=== PATIENT | male | born 1945 | race Caucasian/White ===

== ENCOUNTER 2021-05-24 18:10 | Emergency (ER) | payer MEDICARE, OTHER ==
[~2021-05-24] VITALS: Ht 177.8 cm; Wt 77.1 kg
[2021-05-24 19:46] LABS: BASOPHILS % (AUTO) 0.2 % (0.0-5.0); HEMATOCRIT 42.8 % (42-54); MEAN CORPUSCULAR HEMOGLOBIN 29.3 pg (27.0-33.0); MEAN CORPUSCULAR HGB CONC 33.2 g/dL (32.0-36.0); MEAN CORPUSCULAR VOLUME 88.4 fL (79-99); MONOCYTES % (AUTO) 5.4 % (3.0-13.0); NEUTROPHILS % (AUTO) 85.6 % (40.0-77.0); PLATELET COUNT (AUTO) 320 K/uL (130-400); RED BLOOD CELL COUNT(AUTO) 4.84 MIL/uL (4.50-6.20); RED CELL DISTRIBUTION WIDTH 12.7 % (11.0-15.5); WHITE BLOOD COUNT (AUTO) 9.1 K/uL (4.8-10.8)
[2021-05-24 19:56] LABS: CREATININE 0.8 mg/dL (0.5-1.5)
[2021-05-24 20:06] LABS: ALBUMIN 2.9 g/dL (3.5-5.0); BILIRUBIN,TOTAL 0.4 mg/dL (0.2-1.0); TOTAL PROTEIN, SERUM 6.8 g/dL (6.0-8.3)
[2021-05-24 21:16] VITALS: BP 131/70
== END 2021-05-24 21:22 | disposition home or self-care (01) ==
LOC: EDH 18:10
DX: H53.8 Other visual disturbances (principal); E78.00 Pure hypercholesterolemia, unspecified; Z86.718 Personal history of other venous thrombosis and embolism; Z90.89 Acquired absence of other organs; Z98.890 Other specified postprocedural states
CPT/HCPCS: 36415; 70450; 80053; 82550; 84484; 85025; 93005

== ENCOUNTER 2021-06-08 16:01 | Emergency (ER) | payer MEDICARE, OTHER ==
[~2021-06-08] VITALS: Ht 177.8 cm; Wt 75.1 kg
[2021-06-08 16:34] LABS: BASOPHILS % (AUTO) 0.3 % (0.0-5.0); EOSINOPHILS % (AUTO) 3.6 % (0.0-8.0); HEMATOCRIT 45.9 % (42-54); LYMPHOCYTES % (AUTO) 9.5 % (21.0-51.0); MEAN CORPUSCULAR HEMOGLOBIN 29.2 pg (27.0-33.0); MEAN CORPUSCULAR HGB CONC 32.2 g/dL (32.0-36.0); MEAN CORPUSCULAR VOLUME 90.5 fL (79-99); MONOCYTES % (AUTO) 7.6 % (3.0-13.0); NEUTROPHILS % (AUTO) 78.4 % (40.0-77.0); PLATELET COUNT (AUTO) 376 K/uL (130-400); RED BLOOD CELL COUNT(AUTO) 5.07 MIL/uL (4.50-6.20); RED CELL DISTRIBUTION WIDTH 12.8 % (11.0-15.5); WHITE BLOOD COUNT (AUTO) 12.4 K/uL (4.8-10.8)
[2021-06-08 16:36] LABS: APPEARANCE,URINE Clear (CLEAR); BILIRUBIN,URINE Negative (NEGATIVE); COLOR,URINE Dark Yellow (YELLOW); GLUCOSE, URINE (UA) Negative (NEGATIVE); KETONES,URINE Trace mg/dL (NEGATIVE); LEUKOCYTE ESTERASE ,URINE Negative (NEGATIVE); NITRATE,URINE Negative (NEGATIVE); OCCULT BLOOD,URINE Moderate (NEGATIVE); PH,URINE 5.5 (5.0-8.0); PROTEIN,URINE Trace mg/dL (NEGATIVE)
[2021-06-08 16:45] LABS: BACTERIA,URINE Few /HPF (None Seen); CREATININE 0.9 mg/dL (0.5-1.5); MUCUS,URINE Few LPF (None Seen); SQUAMOUS EPITHELIAL CELL,UR Few /HPF (0-2)
[2021-06-08 16:55] LABS: ALBUMIN 3.3 g/dL (3.5-5.0); BILIRUBIN,TOTAL 0.4 mg/dL (0.2-1.0); TOTAL PROTEIN, SERUM 7.5 g/dL (6.0-8.3)
[2021-06-08] MEDS ORDERED: ONDANSETRON 4MG INJ IVP ONE (18:30)
[2021-06-08] MEDS ORDERED: 0.9%NACL 1000ML 1,000 ML IV ONE (18:30)
[2021-06-08] MEDS ORDERED: FAMOTIDINE 20MG VIAL IV ONE (18:30)
[2021-06-08] MEDS ORDERED: IOHEXOL-350 75 ML VIAL IV ONE (18:41)
[2021-06-08] MEDS ORDERED: ONDA4TAB10 PO (20:47)
[2021-06-08] MEDS ORDERED: FAMO-136 PO (20:47)
[2021-06-08 20:57] VITALS: BP 121/80
[2021-06-10] MEDS ORDERED: APIX5TAB PO (04:41)
[2021-06-10] MEDS ORDERED: PRAV40TA3 PO (04:41)
== END 2021-06-08 21:14 | disposition home or self-care (01) ==
LOC: EDH 16:01
DX: R10.84 Generalized abdominal pain (principal); R11.0 Nausea; R63.4 Abnormal weight loss; R19.7 Diarrhea, unspecified; Z20.822 Contact with and (suspected) exposure to COVID-19; E78.00 Pure hypercholesterolemia, unspecified; Z79.899 Other long term (current) drug therapy; Z86.718 Personal history of other venous thrombosis and embolism; Z90.49 Acquired absence of other specified parts of digestive tract
CPT/HCPCS: 36415; 71045; 74177; 80053; 81001; 84484; 85025; 87635; 87804 ×2; 93005; 96361; 96374; 96375; 99285; C9803; J2405; J3490; Q9967

== ENCOUNTER 2021-06-13 11:10 | Emergency (ER) | payer MEDICARE, OTHER ==
[~2021-06-13] VITALS: Ht 177.8 cm; Wt 73.9 kg
[~2021-06-13 11:10] MED LIST: APIX5TAB PO; FAMO-136 PO; ONDA4TAB10 PO; PRAV40TA3 PO
[2021-06-13 12:13] LABS: BASOPHILS % (AUTO) 0.2 % (0.0-5.0); EOSINOPHILS % (AUTO) 3.7 % (0.0-8.0); HEMATOCRIT 41.5 % (42-54); LYMPHOCYTES % (AUTO) 6.5 % (21.0-51.0); MEAN CORPUSCULAR HEMOGLOBIN 29.3 pg (27.0-33.0); MEAN CORPUSCULAR HGB CONC 32.5 g/dL (32.0-36.0); MEAN CORPUSCULAR VOLUME 90.2 fL (79-99); MONOCYTES % (AUTO) 8.5 % (3.0-13.0); NEUTROPHILS % (AUTO) 80.5 % (40.0-77.0); PLATELET COUNT (AUTO) 277 K/uL (130-400); WHITE BLOOD COUNT (AUTO) 9.9 K/uL (4.8-10.8)
[2021-06-13 12:22] LABS: CREATININE 0.8 mg/dL (0.5-1.5); POTASSIUM 4.2 mmol/L (3.5-5.1)
[2021-06-13 12:27] LABS: ALBUMIN 2.8 g/dL (3.5-5.0); BILIRUBIN,TOTAL 0.8 mg/dL (0.2-1.0); TOTAL PROTEIN, SERUM 6.1 g/dL (6.0-8.3)
[2021-06-13 13:21] LABS: B-TYPE NATRIURETIC PEPTIDE 12 pg/mL (0-100)
[2021-06-13] MEDS ORDERED: 0.9%NACL 1000ML 1,000 ML IV SCH (13:30)
[2021-06-13] MEDS ORDERED: IOHEXOL-350 75 ML VIAL IV ONE (13:52)
[2021-06-13] MEDS ORDERED: LORAZEPAM 0.5 MG TABLET PO SCH (15:00)
[2021-06-13] MEDS ORDERED: CYCL10TA16 PO (15:23)
[2021-06-13] MEDS ORDERED: HYDR-3421 PO (15:24)
[2021-06-13 15:42] VITALS: BP 132/78
== END 2021-06-13 15:46 | disposition home or self-care (01) ==
LOC: EDH 11:10
DX: M94.0 Chondrocostal junction syndrome [Tietze] (principal); R07.89 Other chest pain; I25.10 Atherosclerotic heart disease of native coronary artery without angina pectoris; E78.00 Pure hypercholesterolemia, unspecified; Z98.890 Other specified postprocedural states; Z88.1 Allergy status to other antibiotic agents; Z79.899 Other long term (current) drug therapy
CPT/HCPCS: 36415; 71045; 71275; 80053; 83880; 84484 ×2; 85025; 85378; 93005; 96360; 99285; J7030; Q9967